=== PATIENT | female | born 1955 | race Caucasian/White ===

== ENCOUNTER 2018-05-10 19:44 | Emergency (ER) | payer MEDICAID ==
[~2018-05-10] VITALS: Ht 154.9 cm; Wt 80.7 kg
[~2018-05-10 19:44] MED LIST: ALBUTEROL2.5 MG/0.5 INH; AZITHROMYCIN 2250 MG PO; DEMEROL50 MG PO; HYDROCHLOROTHIA25 M1 PO; METOPROLOL PO; MULTIVITAMINS PO; NEXIUM 40 MG CA40 M1 PO; NORCO 10-325 T1 EACH; PREDNISONE 20 M20 M1 PO; RANITIDINE HCL300 MG PO; ZANTAC 150MG T150 M1 PO; ZYRTEC10 M2 PO; [UNRECOGNIZED DRUG - OTHER] MC
[2018-05-10] MEDS ORDERED: LOPRESSOR50 MG PO (20:12)
[2018-05-10] MEDS ORDERED: NEURONTIN 300300 M1 PO (20:14)
[2018-05-10] MEDS ORDERED: NORTRIPTYLINE H50 M3 PO (20:15)
[2018-05-10] MEDS ORDERED: PROTONIX40 M1 PO (20:15)
[2018-05-10] MEDS ORDERED: ZANAFLEX2 MG PO (20:16)
[2018-05-10] MEDS ORDERED: ALDACTONE50 MG PO (20:16)
[2018-05-10] MEDS ORDERED: SINGULAIR 10 MG10 M1 PO (20:16)
[2018-05-10 21:01] LABS: ABSOLUTE BASOPHILS 0.1 thou/uL (0.0-0.2); ABSOLUTE EOSINOPHILS 0.2 thou/uL (0.0-0.7); ABSOLUTE LYMPHOCYTES 1.5 thou/uL (0.8-5.3); ABSOLUTE MONOCYTES 0.9 thou/uL (0.0-1.2); ABSOLUTE NEUTROPHILS 11.6 thou/uL (1.6-8.1); BASOPHILS 0.7 %; EOSINOPHILS 1.1 %; HEMATOCRIT 38.5 % (37.0-47.0); HEMOGLOBIN 12.8 gm/dL (12.0-15.0); LYMPHOCYTES 10.7 %; MCH 28.6 pg (26.0-34.0); MCHC 33.3 g/dL (28.0-37.0); MCV 85.8 fL (80.0-100.0); MONOCYTES 6.6 %; NUCLEATED RBCS 0 /100WBC; PLATELET COUNT* 342 thou/uL (150-400); POLYS 80.9 %; RBC 4.48 mil/uL (4.20-5.00); RDW-CV 15.2 % (10.5-14.5); WBC 14.3 thou/uL (4.0-11.0)
[2018-05-10 21:11] LABS: APTT 33.4 Seconds (25.0-31.3); INR 1.1; PROTIME 11.3 Seconds (9.20-11.50)
[2018-05-10 21:13] LABS: ALBUMIN 3.1 g/dL (3.4-5.0); CREATININE 1.3 mg/dL (0.6-1.3); POTASSIUM 4.3 mmol/L (3.5-5.1); TOTAL BILIRUBIN 0.4 mg/dL (<0.1-1.0); TOTAL PROTEIN 6.7 g/dL (6.4-8.2)
[2018-05-10 22:30] VITALS: BP 115/85
== END 2018-05-10 22:10 | disposition home or self-care (01) ==
LOC: M.ERS 19:44
PROVIDERS: Physician Assistant
DX: M25.552 Pain in left hip (principal); M54.5 Low back pain; I10 Essential (primary) hypertension; J45.909 Unspecified asthma, uncomplicated; K21.9 Gastro-esophageal reflux disease without esophagitis; Z90.49 Acquired absence of other specified parts of digestive tract; Z90.710 Acquired absence of both cervix and uterus; Z96.642 Presence of left artificial hip joint; Z96.653 Presence of artificial knee joint, bilateral; Z91.040 Latex allergy status; W19.XXXA Unspecified fall, initial encounter; Y93.01 Activity, walking, marching and hiking; Y92.481 Parking lot as the place of occurrence of the external cause; Y99.8 Other external cause status

== ENCOUNTER 2019-03-21 16:05 | Emergency (ER) | payer OTHER, MEDICAID ==
[~2019-03-21] VITALS: Ht 152.4 cm; Wt 78.5 kg
[~2019-03-21 16:05] MED LIST changes: +ALDACTONE50 MG PO; +LOPRESSOR50 MG PO; +NEURONTIN 300300 M1 PO; +NORTRIPTYLINE H50 M3 PO; +PROTONIX40 M1 PO; +SINGULAIR 10 MG10 M1 PO; +ZANAFLEX2 MG PO
[2019-03-21] MEDS ORDERED: IBUPROFEN 400400 M1 PO (16:22)
[2019-03-21 17:18] LABS: CALCIUM 6.6 mg/dL (8.5-10.1); CREATININE 0.9 mg/dL (0.6-1.3); POTASSIUM 3.5 mmol/L (3.5-5.1)
[2019-03-21 17:22] LABS: ALBUMIN 3.1 g/dL (3.4-5.0); TOTAL BILIRUBIN 0.5 mg/dL (<0.1-1.0); TOTAL PROTEIN 5.9 g/dL (6.4-8.2)
[2019-03-21 17:48] LABS: CK-MB MASS 2.2 ng/mL (<0.5-3.6)
[2019-03-21 17:51] LABS: MAGNESIUM 0.6 mg/dL (1.8-2.4)
[2019-03-21 18:16] LABS: ABSOLUTE BASOPHILS 0.1 thou/uL (0.0-0.2); ABSOLUTE EOSINOPHILS 0.2 thou/uL (0.0-0.7); ABSOLUTE LYMPHOCYTES 2.2 thou/uL (0.8-5.3); ABSOLUTE MONOCYTES 0.8 thou/uL (0.0-1.2); ABSOLUTE NEUTROPHILS 8.1 thou/uL (1.6-8.1); BASOPHILS 0.9 %; EOSINOPHILS 1.4 %; HEMATOCRIT 37.7 % (37.0-47.0); HEMOGLOBIN 12.7 gm/dL (12.0-15.0); LYMPHOCYTES 19.5 %; MCHC 33.6 g/dL (28.0-37.0); MCV 89.4 fL (80.0-100.0); MONOCYTES 6.9 %; MPV 7.9 fl. (7.2-11.1); NUCLEATED RBCS 0 /100WBC; PLATELET COUNT* 292 thou/uL (150-400); POLYS 71.3 %; RBC 4.22 mil/uL (4.20-5.00); RDW-CV 15.5 % (10.5-14.5); WBC 11.4 thou/uL (4.0-11.0)
[2019-03-21 18:35] LABS: APTT 30.9 Seconds (25.0-31.3); INR 1.2; PROTIME 12.1 Seconds (9.20-11.50)
[2019-03-21 18:56] VITALS: BP 136/88
--- NOTE | 2019-03-22 10:10 | EKG ---
[place] [address] ELECTROCARDIOGRAM REPORT Name: AMINA BORGES Room: [facility]#: [id number] Admission: 03/21/19 Attend Phys: Discharge: 03/21/19 Date of : 51 Report #: [id number] THIS REPORT FOR: //name// [facility] ED Test Date: 2019-03-21 Test Time: 16:11:50 Pat Name: AMINA BORGES Department: Room: Gender: F Insurance Verification Clerk: vik : 1955 Requested By: Nicolas Buck Order Number: [id number] MD: Andrea Mtz Measurements Intervals [place] Rate: 88 P: 54 [place]: 129 QRS: 8 QRSD: 84 T: 15 QT: 351 QTc: 425 Interpretive Statements Sinus rhythm Probable left atrial enlargement Borderline T abnormalities, anterior leads Baseline wander in lead(s) V3 Compared to ECG 07/17/2011 18:53:04 no change Electronically Signed On 03-22-2019 10:10:10 [employer] by Andrea Mtz [email or web address] <ELECTRONICALLY SIGNED> By: Andrea Mtz MD, [facility] 03/22/19 1010 161 10 Andrea Mtz MD, [facility] /EPI
== END 2019-03-21 18:57 | disposition home or self-care (01) ==
LOC: M.ERS 16:05
PROVIDERS: Family Medicine
DX: R07.9 Chest pain, unspecified (principal); E83.42 Hypomagnesemia; J45.909 Unspecified asthma, uncomplicated; K21.9 Gastro-esophageal reflux disease without esophagitis; F17.210 Nicotine dependence, cigarettes, uncomplicated; Z98.51 Tubal ligation status; Z90.49 Acquired absence of other specified parts of digestive tract; Z96.653 Presence of artificial knee joint, bilateral; Z90.710 Acquired absence of both cervix and uterus; Z96.642 Presence of left artificial hip joint; Z91.040 Latex allergy status; Z88.6 Allergy status to analgesic agent

== ENCOUNTER 2020-04-16 12:44 | Emergency (ER) | payer OTHER, MEDICAID ==
[~2020-04-16] VITALS: Ht 152.4 cm; Wt 63.5 kg
[~2020-04-16 12:44] MED LIST changes: +IBUPROFEN 400400 M1 PO
[2020-04-16] MEDS ORDERED: CHOLESTEROL MED (13:04)
[2020-04-16] MEDS ORDERED: MONTELUKAST SODI4 M1 PO (13:04)
[2020-04-16] MEDS ORDERED: MAGNESIUM250 M1 PO (13:04)
[2020-04-16] MEDS ORDERED: SUPER THERAVIT1 EACH PO (13:04)
[2020-04-16] MEDS ORDERED: PROTONIX40 M2 PO (13:04)
[2020-04-16 13:44] LABS: ABSOLUTE EOSINOPHILS 0.1 thou/uL (0.0-0.7); ABSOLUTE LYMPHOCYTES 1.5 thou/uL (0.8-5.3); ABSOLUTE MONOCYTES 0.9 thou/uL (0.0-1.2); ABSOLUTE NEUTROPHILS 5.7 thou/uL (1.6-8.1); BASOPHILS 0.5 %; EOSINOPHILS 0.9 %; HEMATOCRIT 29.1 % (37.0-47.0); HEMOGLOBIN 10.2 gm/dL (12.0-15.0); LYMPHOCYTES 18.3 %; MCH 34.1 pg (26.0-34.0); MCV 97.7 fL (80.0-100.0); MONOCYTES 10.9 %; MPV 7.6 fl. (7.2-11.1); NUCLEATED RBCS 0 /100WBC; PLATELET COUNT* 220 thou/uL (150-400); POLYS 69.4 %; RBC 2.98 mil/uL (4.20-5.00); RDW-CV 13.2 % (10.5-14.5); WBC 8.2 thou/uL (4.0-11.0)
[2020-04-16 13:53] LABS: CALCIUM 6.6 mg/dL (8.5-10.1)
[2020-04-16 13:55] LABS: POTASSIUM 2.6 mmol/L (3.5-5.1)
[2020-04-16 13:56] LABS: APTT 29.7 Seconds (25.0-31.3); INR 1.2; PROTIME 13.1 Seconds (9.20-11.50)
[2020-04-16 14:05] LABS: ALBUMIN 2.5 g/dL (3.4-5.0); TOTAL BILIRUBIN 0.9 mg/dL (<0.1-1.0); TOTAL PROTEIN 4.9 g/dL (6.4-8.2)
--- NOTE | 2020-04-16 15:06 | EKG ---
[place] [address] ELECTROCARDIOGRAM REPORT Name: AMINA BORGES Room: [facility]#: [id number] Admission: 04/16/20 Attend Phys: Discharge: Date of : 51 Date of Service: 04/16/20 1325 Report #: [id number] THIS REPORT FOR: //name// [facility] ED Test Date: 2020-04-16 Test Time: 13:25:57 Pat Name: AMINA BORGES Department: Room: Gender: Accounts Receivable Administrator: S : 1955 Requested By: China Henriquez Order Number: [id number] MD: Andrea Mtz Measurements Intervals [place] Rate: 88 P: 72 [place]: 131 QRS: 42 QRSD: 88 T: 20 QT: 351 QTc: 425 Interpretive Statements Sinus rhythm Low voltage, precordial leads Borderline T abnormalities, anterior leads Compared to ECG 03/21/2019 16:11:50 Low QRS voltage now present T-wave abnormality still present Electronically Signed On 04-16-2020 15:05:53 PERFORMANCE TEST ENGINE[employer] by Andrea Mtz [email or web address] <ELECTRONICALLY SIGNED> By: Andrea Mtz MD, [facility] 04/16/20 1505 1325 1325 Andrea Mtz MD, [facility] /EPI
[2020-04-16] MEDS ORDERED: BACTRIM DS TAB1 EACH PO (15:37)
[2020-04-16] MEDS ORDERED: HYDROCODON-ACE1 EAC7 PO (15:37)
[2020-04-16] MEDS ORDERED: KEFLEX500 M1 PO (15:37)
[2020-04-16 15:45] VITALS: BP 112/70
== END 2020-04-16 15:47 | disposition home or self-care (01) ==
LOC: M.ERS 12:44
PROVIDERS: Nurse Practitioner Family
DX: L03.116 Cellulitis of left lower limb (principal); R60.0 Localized edema; J44.9 Chronic obstructive pulmonary disease, unspecified; I10 Essential (primary) hypertension; K21.9 Gastro-esophageal reflux disease without esophagitis; F17.210 Nicotine dependence, cigarettes, uncomplicated; Z91.040 Latex allergy status; Z88.8 Allergy status to other drugs, medicaments and biological substances; Z98.51 Tubal ligation status; Z90.89 Acquired absence of other organs; Z96.653 Presence of artificial knee joint, bilateral; Z90.49 Acquired absence of other specified parts of digestive tract; Z90.710 Acquired absence of both cervix and uterus; Z96.642 Presence of left artificial hip joint

== ENCOUNTER 2021-01-23 11:29 | Emergency (ER) | payer OTHER, MEDICAID ==
[~2021-01-23] VITALS: Ht 152.4 cm; Wt 64.9 kg
[~2021-01-23 11:29] MED LIST changes: +BACTRIM DS TAB1 EACH PO; +CHOLESTEROL MED; +HYDROCODON-ACE1 EAC7 PO; +KEFLEX500 M1 PO; +MAGNESIUM250 M1 PO; +MONTELUKAST SODI4 M1 PO; +PROTONIX40 M2 PO; +SUPER THERAVIT1 EACH PO
[2021-01-23] MEDS ORDERED: NEURONTIN300 MG PO (11:44)
[2021-01-23] MEDS ORDERED: FISH OIL + D31 EACH PO (11:44)
[2021-01-23] MEDS ORDERED: ZYRTEC10 M5 PO (11:44)
[2021-01-23] MEDS ORDERED: STEROID (11:45)
[2021-01-23 12:21] VITALS: BP 141/78
== END 2021-01-23 12:21 | disposition left against medical advice (07) ==
LOC: M.ERS 11:29
DX: M79.645 Pain in left finger(s) (principal); Z53.21 Procedure and treatment not carried out due to patient leaving prior to being seen by health care provider

== ENCOUNTER 2021-01-24 06:57 | Emergency (ER) | payer OTHER, MEDICAID ==
[~2021-01-24] VITALS: Ht 152.4 cm; Wt 64.9 kg
[~2021-01-24 06:57] MED LIST changes: +FISH OIL + D31 EACH PO; +NEURONTIN300 MG PO; +STEROID; +ZYRTEC10 M5 PO
[2021-01-24 07:38] VITALS: BP 167/91
== END 2021-01-24 08:50 | disposition left against medical advice (07) ==
LOC: M.ERS 06:57
DX: M65.312 Trigger thumb, left thumb (principal); I10 Essential (primary) hypertension; K21.9 Gastro-esophageal reflux disease without esophagitis; J44.9 Chronic obstructive pulmonary disease, unspecified; F17.210 Nicotine dependence, cigarettes, uncomplicated; Z98.51 Tubal ligation status; Z90.89 Acquired absence of other organs; Z90.49 Acquired absence of other specified parts of digestive tract; Z90.710 Acquired absence of both cervix and uterus; Z79.899 Other long term (current) drug therapy; Z91.040 Latex allergy status

== ENCOUNTER 2021-05-07 13:16 | Emergency (ER) | payer OTHER, MEDICAID ==
[~2021-05-07] VITALS: Ht 157.5 cm; Wt 52.2 kg
[2021-05-07 14:05] LABS: ABSOLUTE EOSINOPHILS 0.1 thou/uL (0.0-0.7); ABSOLUTE LYMPHOCYTES 1.6 thou/uL (0.8-5.3); ABSOLUTE MONOCYTES 1.1 thou/uL (0.0-1.2); BASOPHILS 0.2 %; EOSINOPHILS 0.5 %; HEMATOCRIT 38.1 % (37.0-47.0); HEMOGLOBIN 12.9 gm/dL (12.0-15.0); LYMPHOCYTES 12.8 %; MCHC 33.7 g/dL (28.0-37.0); MONOCYTES 8.4 %; MPV 6.4 fl. (7.2-11.1); NUCLEATED RBCS 0 /100WBC; PLATELET COUNT* 332 thou/uL (150-400); POLYS 78.1 %; RBC 4.15 mil/uL (4.20-5.00); RDW-CV 16.6 % (10.5-14.5); WBC 12.9 thou/uL (4.0-11.0)
--- NOTE | 2021-05-07 14:05 | EKG ---
[place] [address] ELECTROCARDIOGRAM REPORT Name: AMINA BORGES Room: [facility]#: [id number] Admission: Attend Phys: Discharge: Date of : 51 Date of Service: 05/07/21 1327 Report #: [id number] THIS REPORT FOR: //name// [facility] ED Test Date: 2021-05-07 Test Time: 13:27:57 Pat Name: AMINA BORGES Department: Room: Gender: F Pool Nurse: LISA : 1955 Requested By: Meg Michel Order Number: [id number] MD: Andrea Mtz Measurements Intervals [place] Rate: 94 P: 51 [place]: 124 QRS: 7 QRSD: 69 T: 62 QT: 280 QTc: 351 Interpretive Statements Sinus rhythm Atrial premature complex Probable left atrial enlargement Low voltage, precordial leads Borderline repol abnrm, anterolateral leads Compared to ECG 04/16/2020 13:25:57 Atrial premature complex(es) now present Electronically Signed On 05-07-2021 14:05:01 [employer] by Andrea Mtz [email or web address] <ELECTRONICALLY SIGNED> By: Andrea Mtz MD, [facility] 05/07/21 1405 1327 1327 Andrea Mtz MD, [facility] /EPI
[2021-05-07 14:10] LABS: CALCIUM 7.5 mg/dL (8.5-10.1); POTASSIUM 3.3 mmol/L (3.5-5.1)
[2021-05-07 14:14] LABS: ALBUMIN 2.2 g/dL (3.4-5.0); MAGNESIUM 1.3 mg/dL (1.8-2.4); TOTAL BILIRUBIN 0.4 mg/dL (<0.1-1.0); TOTAL PROTEIN 5.4 g/dL (6.4-8.2)
[2021-05-07 14:26] LABS: URINE BILIRUBIN NEGATIVE (Negative); URINE BLOOD NEGATIVE (Negative); URINE CLARITY CLEAR; URINE COLOR YELLOW; URINE GLUCOSE-RANDOM NEGATIVE (Negative); URINE KETONES NEGATIVE (Negative); URINE LEUKOCYTES-REFLEX NEGATIVE (Negative); URINE NITRITE-REFLEX NEGATIVE (Negative); URINE PROTEIN NEGATIVE (Negative); URINE SPECIFIC GRAVITY <= 1.005 (1.005-1.030); URINE UROBILINOGEN 0.2 E.U./dl (0.2-1.0)
[2021-05-07] MEDS ORDERED: MECLIZINE HCL25 M1 PO (16:26)
[2021-05-07 16:35] VITALS: BP 162/98
== END 2021-05-07 16:36 | disposition home or self-care (01) ==
LOC: M.ERS 13:16
PROVIDERS: Student in an Organized Health Care Education/Training Program
DX: R42 Dizziness and giddiness (principal); I10 Essential (primary) hypertension; K21.9 Gastro-esophageal reflux disease without esophagitis; J44.9 Chronic obstructive pulmonary disease, unspecified; F17.210 Nicotine dependence, cigarettes, uncomplicated; Z91.040 Latex allergy status; Z90.49 Acquired absence of other specified parts of digestive tract; Z90.710 Acquired absence of both cervix and uterus; Z96.642 Presence of left artificial hip joint; Z96.653 Presence of artificial knee joint, bilateral